=== PATIENT | male | born 1990 | race Caucasian/White ===

== ENCOUNTER 2024-05-19 09:43 | Emergency (ER) | payer BC ==
[~2024-05-19] VITALS: Ht 172.7 cm; Wt 83.9 kg
[2024-05-19 10:02] VITALS: BP 143/87; TEMP 97.9
[2024-05-19] MEDS ORDERED: NAPR-1164 PO (10:52)
[2024-05-19 11:19] VITALS: O2SAT 100
== END 2024-05-19 11:20 | disposition home or self-care (01) ==
LOC: ER 09:43
DX: S43.52XA Sprain of left acromioclavicular joint, initial encounter (principal); W18.39XA Other fall on same level, initial encounter; Y93.72 Activity, wrestling; Y92.89 Other specified places as the place of occurrence of the external cause; Y99.8 Other external cause status
CPT/HCPCS: 73030-TC